=== PATIENT | female | born 1995 | race Caucasian/White ===

== ENCOUNTER 2016-07-03 05:45 | Emergency (ER) | payer MEDICAID, OTHER ==
[~2016-07-03] VITALS: Ht 152.4 cm; Wt 44.0 kg
[2016-07-03 05:54] VITALS: Ht 152.4 cm; Wt 44.0 kg
[2016-07-03] MEDS ORDERED: ONDANSETRON (ODT) 4 MG TAB ODT STA (07:25)
[2016-07-03] MEDS ORDERED: FAMOTIDINE 20 MG TAB PO ONE (07:30)
--- NOTE | 2016-07-03 07:50 | RADRPT ---
PROCEDURE: XR Chest. CLINICAL INDICATION: Shortness of breath TECHNIQUE: A single AP view of the chest was obtained. COMPARISON: None. FINDINGS: No focal airspace opacification, pleural effusion or pneumothorax is seen. The cardiomediastinal si lhouette is within normal limits for size. The osseous structures are unremarkable. IMPRESSION: No radiographic evidence of acute cardiopulmonary disease. RPTAT: HH .Kay Perdomo MD, MD Date Time Electronically viewed and signed by .Kay Perdomo MD, MD on 07/03/2016 07:50 .G/
--- NOTE | 2016-07-03 08:21 | ERD ---
ER Documentation Chief Complaint Date/Time DATE: 07/03/16 TIME: 08:16 Chief Complaint diffuse abd pain w/ diarrhea and vomiting HPI This is a 20-year-old female who presents to the emergency department today complaining of vomiting and diarrhea and some stomach pain and feeling shortness of breath and chest pain. she has not taken any medication. Denies any fevers or chills. ROS All systems reviewed and are negative except as per history of present illness. Medications Home Meds Active Scripts Loperamide Hcl* (Imodium*) 2 Mg Capsule, 2 MG PO .AFTER EA LOOSE BM Y for DIARRHEA, #10 TAB Prov:ANIVAL PETERSON PA-C 07/03/16 Acetaminophen* (Tylophen*) 500 Mg Capsule, 1 CAP PO Q6H Y for PAIN AND OR ELEVATED TEMP, #30 CAP Prov:ANIVAL PETERSON PA-C 07/03/16 Naproxen* (Naprosyn*) 500 Mg Tablet, 500 MG PO BID Y for PAIN AND/OR INFLAMMATION, #30 TAB Prov:ANIVAL PETERSON PA-C 07/03/16 Ondansetron Hcl* (Zofran*) 4 Mg Tablet, 4 MG PO Q6H for NAUSEA AND/OR VOMITING, #30 TAB Prov:ANIVAL PETERSON PA-C 07/03/16 Allergies Allergies: Coded Allergies: No Known Allergy (Unverified , 02/11/14) PMhx/Soc Medical and Surgical Hx: pt denies Medical Hx History of Surgery: Yes () Hx Alcohol Use: No Hx Substance Use: No Hx Tobacco Use: No Physical Exam Vitals Vital Signs Date Time Temp Pulse Resp B/P Pulse Ox O2 Delivery O2 Flow Rate FiO2 07/03/16 05:54 98.3 85 20 104/54 100 Physical Exam Const: No acute distress Head: Atraumatic Eyes: Normal Conjunctiva ENT: Normal External Ears, Nose and Mouth. Neck: Full range of motion..~ No meningismus. Resp: Clear to auscultation bilaterally. No absent breath sounds. No wheezing Cardio: Regular rate and rhythm, no murmurs Abd: Soft, non tender, non distended. Normal bowel sounds. Nontender at [place]'s. Skin: No petechiae or rashes Neur: Awake and alert Psych: Normal Mood and Affect Results 24 hrs Current Medications Medications (Trade) Dose Ordered Sig/Sina Route PRN Reason Start Time Stop Time Status Last Admin Dose Admin Ondansetron HCl (Zofran Odt) 4 mg ONCE STAT ODT 07/03/16 07:25 07/03/16 07:27 DC 07/03/16 08:21 Famotidine (Pepcid) 20 mg ONCE ONCE PO 07/03/16 07:30 07/03/16 07:31 DC 07/03/16 08:20 DIAGNOSTIC IMAGING REPORT Patient: AKOSUA GIORDANO : 1995 Age: 20 Sex: F MR #: [id number] DOS: 07/03/16 0000 Ordering MD: ANIVAL PETERSON PA-C Location: [facility] Room/Bed: PROCEDURE: XR Chest. CLINICAL INDICATION: Shortness of breath TECHNIQUE: A single AP view of the chest was obtained. COMPARISON: None. FINDINGS: No focal airspace opacification, pleural effusion or pneumothorax is seen. The cardiomediastinal silhouette is within normal limits for size. The osseous structures are unremarkable. IMPRESSION: No radiographic evidence of acute cardiopulmonary disease. RPTAT: HH .Kay Perdomo MD, MD Date Time Electronically viewed and signed by .Kay Perdomo MD, MD on 07/03/2016 07 :50 .G/ CC: ANIVAL PETERSON PA-C Procedures/MDM This is a 20-year-old female who presents to the emergency department today with multiple complaints of nausea diarrhea, shortness of breath. I did obtain a chest x-ray Chest x-ray is negative. Low suspicion for pneumonia, PE, abscess, pleural effusion, pneumothorax. Patient has chest pain and shortness of breath of uncertain etiology. Low suspicion for cardiac cause. Patient is afebrile and otherwise well-appearing. She is not tachycardic. Her oxygen saturation is 100%. Symptoms may be related to costochondritis. Patient also has vomiting and diarrhea. Patient has no abdominal pain on physical exam. Low suspicion for acute surgical abdomen. Patient was given Zofran here in the emergency department and reported feeling better. She will be given a prescription for Zofran, Imodium, Naprosyn, Tylenol for home At this time the patient is stable for discharge and outpatient management. Patient should follow up with their PCP in the next 1-2 days. They may return to the emergency department sooner for any persistent or worsening of symptoms. Patient understood and agreed with the plan. Departure Diagnosis: Primary Impression: Multiple complaints Condition: ANIVAL Enciso PA-C Jul 03, 2016 08:21
[2016-07-03] MEDS ORDERED: ACET500C5 PO (08:49)
[2016-07-03] MEDS ORDERED: NAPR-260 PO (08:49)
[2016-07-03] MEDS ORDERED: ONDA4TAB8 PO (08:49)
[2016-07-03] MEDS ORDERED: LOPE2CAP PO (08:50)
[2016-07-03 09:20] VITALS: BP 96/65; PULSE 5; RESP 20; TEMP 98.6
== END 2016-07-03 09:20 | disposition home or self-care (01) ==
LOC: FTE 05:45
DX: R10.84 Generalized abdominal pain (principal); R11.10 Vomiting, unspecified; R19.7 Diarrhea, unspecified; R06.02 Shortness of breath; R07.9 Chest pain, unspecified
CPT/HCPCS: 71010; Z7502; Z7610